=== PATIENT | male | born 1970 | race Caucasian/White ===

== ENCOUNTER → 2020-02-28 | Outpatient (CLI) | payer OTHER | LOC: M.MRI 13:30 | DX: M71.21 Synovial cyst of popliteal space [Baker], right knee (principal); M25.462 Effusion, left knee; M71.22 Synovial cyst of popliteal space [Baker], left knee; M22.42 Chondromalacia patellae, left knee; M25.561 Pain in right knee ==

== ENCOUNTER → 2020-04-20 | Outpatient (CLI) | payer OTHER | LOC: M.CT 14:00 | PROVIDERS: ATTEND Orthopaedic Surgery | DX: M25.752 Osteophyte, left hip (principal); M25.751 Osteophyte, right hip; M25.452 Effusion, left hip; M16.12 Unilateral primary osteoarthritis, left hip ==

== ENCOUNTER → 2020-11-16 | Day surgery (SDC) | payer OTHER ==
[~2020-11-16] MED LIST: CELECOXIB200 MG PO; LISINOPRIL-HCT1 EAC1 PO; NEURONTIN 300M300 M2 PO; NORCO 10-325 T1 EACH PO; TIMOLOL MALEATE5 M1 OPHTHALMIC
--- NOTE | ~2020-11-16 | OP ---
[address] [address] OPERATIVE REPORT Name: MAEMIGUEL Garima Room: [facility]#: [id number] Admission: 11/16/20 Attend Phys: Alphonso Willson DO Discharge: Date of : 68 Report #: [id number] THIS REPORT FOR: cc: FAM - No family physician/PCP FAM - No family physician/PCP ~ Alphonso Willson DO DATE OF SERVICE: 11/16/2020 PREOPERATIVE DIAGNOSIS: Superficial wound dehiscence with detritus of right hip measuring 5 cm x 1.5 cm x 1 cm deep. POSTOPERATIVE DIAGNOSIS: Superficial wound dehiscence with detritus of right hip measuring 5 cm x 1.5 x 1 cm deep. PROCEDURE: Incision and debridement of right superficial wound dehiscence to a fascial layer through skin and subcutaneous tissue to the fascia, not including the fascia with a delayed primary closure and application of negative pressure wound dressing. SURGEON: Alphonso Willson DO CHILDREN'S NURSERY ASSISTANT: Miguelina Solomon DO ANESTHESIA: General LMA. COMPLICATIONS: None. ANTIBIOTICS: 2 g Ancef IVPB 30 minutes prior to incision. INDICATIONS FOR SURGERY: The patient is a 50-year-old male who had a right total hip arthroplasty done at [facility] in 11/09/2020. He has had no problems with his surgery other than in the last 3-4 weeks, he developed an area of skin breakdown in the mid portion of his incision to the right upper hip. This was treated conservatively on an outpatient basis for a number of weeks. It has not become infected. It has not drained; however, he has also not shown good healing of the tissue and needs an intervention of debridement in order to help with healing and to keep this patient from developing a potential deep infection due to skin breakdown. Risks and complications of surgery were discussed in detail with the patient including but not limited to neurovascular damage, infection, fracture, need for further surgery, failure of the repair, continued dehiscence, need for an I and D and possible removal of prosthesis with spacer placement and staged revision surgery, blood loss, blood transfusion reactions or problems with anesthesia, which have been discussed with the anesthesiologist and even myocardial infarction and . Signed informed consent has been attached to chart, may refer to. [place] [address] OPERATIVE REPORT Name: MIGUEL WALL Room: [facility]#: [id number] Admission: 11/16/20 Attend Phys: Alphonso Willson DO Discharge: Date of : 68 Report #: [id number] preoperatively for timeout technique. DESCRIPTION OF PROCEDURE: The patient was taken to the operating suite and placed on the operating table in supine position. Following general LMA anesthetic, the right hip was prepped and draped in usual sterile fashion. Timeout technique was utilized to verify appropriate surgical site, procedures, concerns. Measurement of the area of dehiscence was 5 cm total x 1.5 cm in width x 1 cm deep at its most deepest end, which was near the proximal portion of the superficial wound dehiscence. The remaining portion of the incision was healed quite well. Once again, no evidence of infection; however, there was necrotic tissue present. The outline of the incision made with indelible marking pen. The edges were freshened with a 15 blade knife by removing just a small amount of the fibrous exudate. The wound itself was then probed with finger probing as well as a hemostat. This did not extend any further than the fascial layer, which was easily visible. There was no extension to the subfascial layer or to the hip joint per se. With use of a curette, the fibrous tissue and the exudate was scraped from the area. All detritus or tissue, necrotic tissue was removed sharply and with a curette. Copious irrigation carried out throughout the incision, the incision was thoroughly scrubbed with a sterile scrub brush with Hibiclens, then rinsed once again with over 1000 mL of fluid. The deep tissue was extremely clean and without any evidence of further problems. The skin edges were then reapproximated to determine the amount of tension. There was not a great deal of tension. Therefore, delayed primary closure was performed with sonia and in order to help augment healing, a Prevena negative pressure wound dressing was applied. Speaking Unit Assembler pictures were taken prior to dressing placement. The patient was taken to recovery room in stable condition. No complications were encountered. Final instrument counts and sponge counts correct. By: [id number] Parker Willson DO /robert
[2020-11-16 09:46] LABS: CALCIUM 9.5 mg/dL (8.5-10.1); CREATININE 0.9 mg/dL (0.6-1.3); POTASSIUM 4.4 mmol/L (3.5-5.1)
[2020-11-16 09:54] LABS: HEMATOCRIT 41.8 % (42.0-52.0); HEMOGLOBIN 14.2 gm/dL (14.0-18.0); MCH 28.7 pg (26.0-34.0); MCHC 33.9 g/dL (28.0-37.0); MCV 84.7 fL (80.0-100.0); MPV 8.2 fl. (7.2-11.1); RBC 4.94 mil/uL (4.50-6.00); RDW-CV 14.4 % (10.5-14.5); WBC 6.9 thou/uL (4.0-11.0)
--- NOTE | 2020-11-16 16:15 | EKG ---
[place] [address] ELECTROCARDIOGRAM REPORT Name: MAEMIGUEL Whitehead Room: [facility]#: [id number] Admission: 11/16/20 Attend Phys: Alphonso Willson DO Discharge: Date of : 68 Date of Service: 11/16/20 1012 Report #: [id number] THIS REPORT FOR: //name// [facility] Test Date: 2020-11-16 Test Time: 10:12:08 Pat Name: MIGUEL WALL Department: Room: Gender: M Programmer Or Analyst: HELADIO : 1970 Requested By: Alphonso Willson Order Number: [id number] Cade MD: Charli Oconnor Measurements Intervals [place] Rate: 70 P: 33 OK: 212 QRS: 29 QRSD: 103 T: 48 QT: 379 QTc: 409 Interpretive Statements Sinus rhythm Prolonged OK interval RSR' in V1 or V2, right VCD or RVH ST elevation suggests early repolarization No previous ECG available for comparison Electronically Signed On 11-16-2020 16:15:08 TRAFFIC CHIEF by Charli Oconnor [email or web address] <ELECTRONICALLY SIGNED> By: Charli Oconnor MD, [facility] 11/16/20 1615 1012 1012 Charli Oconnor MD, [facility] /EPI
== END | disposition home or self-care (01) ==
LOC: M.SUR 07:25
PROVIDERS: ATTEND Orthopaedic Surgery
DX: T81.31XA Disruption of external operation (surgical) wound, not elsewhere classified, initial encounter (principal); Z96.643 Presence of artificial hip joint, bilateral; Z98.890 Other specified postprocedural states; Z79.899 Other long term (current) drug therapy; Z79.891 Long term (current) use of opiate analgesic; Y83.8 Other surgical procedures as the cause of abnormal reaction of the patient, or of later complication, without mention of misadventure at the time of the procedure